=== PATIENT | male | born 1955 | race Two or more races ===

== ENCOUNTER 2018-03-24 08:24 | Day surgery (SDC) | payer BC ==
[2018-03-19 13:35] VITALS: BMI 23.6
[~2018-03-24 08:24] MED LIST: HEPARIN SODIUM,PORCINE 5,000 UNIT/ML 1 ML VIAL SQ ONE; ceFAZolin IN SWFI 2 GM/20 ML SYRINGE IVP ONE
[2018-03-24] MEDS ORDERED: LACTATED RINGERS 1,000 ML IV ONE ×2 (09:30→11:51)
[2018-03-24] MEDS ORDERED: LIDOCAINE 1% 20 ML VIAL (10MG/ML) FOR IV START INTRADERMA ONE (09:43)
[2018-03-24] MEDS ORDERED: DEXAMETHASONE SOD PHOSPHATE 10 MG/ML 1 ML VIAL IV ONE (09:44)
[2018-03-24] MEDS ORDERED: ONDANSETRON 4 MG/2 ML VIAL IVP ONE (09:44)
[2018-03-24] MEDS ORDERED: SCOPOLAMINE 1.5MG/72HR PATCH TRANSDERM ONE (09:45)
--- NOTE | 2018-03-24 09:48 | P.GSHP ---
History of Present Illness H&P Date: 03/24/18 Chief Complaint: Bilateral inguinal hernia Patient here today for repair of bilateral inguinal hernia. Recurrent on the right hand side. Right side is more symptomatic. No changes in his history or physical exam since his previous office visit. Past Medical History Past Medical History: Thyroid Disorder Additional Past Medical History / Comment(s): HERNIA History of Any Multi-Drug Resistant Organisms: None Reported Additional Past Surgical History / Comment(s): EPIDURAL SHOTS IN PAST. COLONOSCOPY/EGD Past Anesthesia/Blood Transfusion Reactions: No Reported Reaction Past Psychological History: No Psychological Hx Reported Smoking Status: Never smoker Past Alcohol Use History: Occasional Past Drug Use History: None Reported - Past Family History Mother Family Medical History: No Reported History Medications and Allergies Home Medications Medication Instructions Recorded Confirmed Type Aspirin EC [Ecotrin Low Dose] 81 mg PO DAILY 03/19/18 03/19/18 History Calcium Polycarbophil [Fibercon] 625 mg PO TID-W/MEALS 03/19/18 03/19/18 History Cetirizine HCl [Zyrtec] 10 mg PO DAILY 03/19/18 03/19/18 History L.acidoph,Paracasei, B.lactis 1 each PO DAILY 03/19/18 03/19/18 History [Probiotic] Levothyroxine Sodium [Synthroid] 100 mcg PO DAILY 03/19/18 03/19/18 History Multivitamin [Men's Multi-Vitamin] 1 each PO DAILY 03/19/18 03/19/18 History Allergies Allergy/AdvReac Type Severity Reaction Status Date / Time No Known Allergies Allergy Verified 03/19/18 13:30 Surgical - Exam Vital Signs Temp Pulse Resp BP Pulse Ox 97.9 F 73 18 150/82 98 03/24/18 09:08 03/24/18 09:08 03/24/18 09:08 03/24/18 09:08 03/24/18 09:08 Physical exam: General: Well-developed, well-nourished HEENT: Normocephalic, sclerae nonicteric Abdomen: Nontender, nondistended, bilateral inguinal hernias right greater than left Extremities: No edema Neuro: Alert and oriented Assessment and Plan (1) Bilateral inguinal hernia Narrative/Plan: Will proceed with operative repair at this time. Current Visit: Yes Status: Acute Code(s): K40.20 - BI INGUINAL HERNIA, W/O OBST OR GANGRENE, NOT SPCF RECUR SNOMED Code(s): 97575487
[2018-03-24] MEDS ORDERED: MIDAZOLAM 2 MG/2 ML VIAL IV ONE (09:55)
[2018-03-24] MEDS ORDERED: fentaNYL (PF) 50 MCG/ML 2 ML AMP IV ONE (09:55)
[2018-03-24] MEDS ORDERED: GLYCOPYRROLATE 0.2 MG/ML 2 ML VIAL ONE (10:15)
[2018-03-24] MEDS ORDERED: SUCCINYLCHOLINE CHLORIDE 100 MG/5 ML SYR IV ONE (10:15)
[2018-03-24] MEDS ORDERED: KETOROLAC 30 MG/ML 1 ML VIAL ONE (10:15)
[2018-03-24] MEDS ORDERED: fentaNYL (PF) 50 MCG/ML 2 ML AMP ONE (10:15)
[2018-03-24] MEDS ORDERED: MIDAZOLAM 2 MG/2 ML VIAL ONE (10:15)
[2018-03-24] MEDS ORDERED: PHENYLEPHRINE-0.9% NACL SYG 1 MG/10 ML SYRINGE ONE (10:15)
[2018-03-24] MEDS ORDERED: LIDOCAINE 1% INJ 10MG/ML (20 ML MDV) ONE (10:15)
[2018-03-24] MEDS ORDERED: ROCURONIUM BROMIDE 10 MG/ML 10 ML VIAL IV ONE (10:15)
[2018-03-24] MEDS ORDERED: NEOSTIGMINE 1 MG/ML 10 ML VIAL ONE (10:15)
[2018-03-24] MEDS ORDERED: ROPIVACAINE 5 MG/ML 30 ML VIAL ONE (10:15)
[2018-03-24] MEDS ORDERED: PROPOFOL 10 MG/ML 20 ML VIAL IV ONE (10:15)
[2018-03-24] MEDS ORDERED: BUPIVACAIN-EPI 0.25%-1:200,000 30 ML VIAL SQ ONE ×2 (10:44)
[2018-03-24] MEDS ORDERED: HYDROcodone/APAP 5-325MG 1 EACH TAB PO PRN (12:20)
[2018-03-24] MEDS ORDERED: NALOXONE 0.4 MG/ML 1 ML VIAL IV PRN (12:20)
--- NOTE | 2018-03-24 12:39 | P.OP ---
Date of Procedure: 03/24/18 Procedure(s) Performed: PREOPERATIVE DIAGNOSIS: Recurrent right, non-recurrent left inguinal hernia POSTOPERATIVE DIAGNOSIS: Same, intra-abdominal adhesions PROCEDURE: Laparoscopic repair recurrent right and non-recurrent left inguinal hernia with the da Pravin robot assistance with mesh, laparoscopic lysis of adhesions SURGEON: Carmen EBL: Minimal ANESTHESIA: General COMPLICATIONS: None OPERATIVE PROCEDURE: Patient was placed in the operating table in the supine position. The patient was placed under general anesthesia. The abdomen was prepped and draped in usual sterile fashion. A small curvilinear supraumbilical incision was made. The fascia was retracted anteriorly with Deepak forceps. The Veress needle was inserted. The saline drop test was normal. Insufflation took place to 15 mmHg. A 5 mm trocar was placed into the peritoneal cavity. This was later switched to a 12 mm trocar. 2 additional 8 mm trochars were placed in the right upper quadrant and left upper quadrant under visualization. The patient had some adhesions in the right upper quadrant that were lysed sharply between the omentum and the abdominal wall before our right upper quadrant trocar was placed. The robotic arms were then brought in and docked into place. The fenestrated bipolar was used in the left arm and the laparoscopic myriam was utilized in the right arm. A 30 12 mm scope was used in the up position. The peritoneal cavity was inspected. The patient had a large recurrent right indirect inguinal hernia containing omentum and a non-recurrent direct left inguinal hernia. The right side was first addressed. The peritoneum was incised in a horizontal fashion cephalad to the internal inguinal ring. Following that careful dissection of the preperitoneal space took place. This took place using both electrocautery, sharp dissection but primarily blunt dissection. Visualization of the pubic tubercle and Marcus' s ligament took place medially. Full dissection took place laterally as well. The large hernia sac was fully dissected. Once we had adequate space the 15 x 10 progrip mesh was advanced into the preperitoneal space and flattened out appropriately to cover all potential hernia sites. No sutures were used. The left side was then addressed in a similar fashion. Full dissection of the direct hernia took place without difficulty. I did have a window anterior to the bladder following this dissection. The 15 x 10 Prograf mesh was again utilized. The mesh was able to overlap one another in the midline. Bilaterally the peritoneal defects were then closed using a locking 2-0 VLok suture. A small defect in the peritoneum on the right was closed using a 3-0 Vicryl stitch and some of the excess hernia sac was excised and sent to pathology. The pneumoperitoneum was then evacuated. The fascia at the 12 mm site was closed using the Scott Neely technique and an 0 Vicryl stitch. The skin of all 3 sites was closed using a 4-0 Monocryl stitch. Skin glue was then applied. DISPOSITION: Stable to recovery room
[2018-03-24 12:46] VITALS: TEMP 97.6
[2018-03-24] MEDS ORDERED: HYDROcodone/APAP 5-325MG 1 EACH TAB PO ONE (15:03)
[2018-03-24 15:49] VITALS: BP 149/84; PULSE 70; RESP 18
--- NOTE | 2018-03-25 17:35 | P.ONQ ---
Anesthesiology Proc Note - PNB - Peripheral Nerve Block Performed Bilateral Transversus Abdominis Single Time Out Performed: Yes Procedure Start Time: 09:56 Procedure Stop Time: 10:02 Indication: Acute Post-Operative Pain, Requested by physician Sedation Type: Sedate with meaningful contact maintained Preparation: Sterile Prep Position: Supine Needle Size: 50mm (2") Needle Gauge: 21 Technique: Ultrasound Injectate: 0.5% Ropivacaine (see comment for volume) (ropi .5% 20cc each side) Blood Aspirated: No Pain Paresthesia on Injection Noted: No Resistance on Injection: Normal Events: Uneventful and Well Tolerated
== END 2018-03-24 16:19 | disposition home or self-care (01) ==
LOC: OR 08:24
PROVIDERS: ATTEND Surgery
DX: K40.91 Unilateral inguinal hernia, without obstruction or gangrene, recurrent (principal); K40.90 Unilateral inguinal hernia, without obstruction or gangrene, not specified as recurrent; K66.0 Peritoneal adhesions (postprocedural) (postinfection); E07.9 Disorder of thyroid, unspecified; Z79.82 Long term (current) use of aspirin; Z79.899 Other long term (current) drug therapy
CPT/HCPCS: 49650; 49651; S2900; 64488; 88302